=== PATIENT | male | born 1940 | race Caucasian/White ===

== ENCOUNTER → 2017-03-22 | Outpatient (CLI) | payer BC | LOC: BMCIMAGING 09:52 | PROVIDERS: ATTEND Orthopaedic Surgery Hand Surgery | DX: R22.32 Localized swelling, mass and lump, left upper limb (principal); Z96.9 Presence of functional implant, unspecified ==

== ENCOUNTER → 2017-11-23 | Outpatient (CLI) | payer OTHER | LOC: BMCIMAGING 11:37 | PROVIDERS: ATTEND Orthopaedic Surgery Hand Surgery | DX: M18.51 Other unilateral secondary osteoarthritis of first carpometacarpal joint, right hand (principal); M18.52 Other unilateral secondary osteoarthritis of first carpometacarpal joint, left hand ==